=== PATIENT | female | born 1945 | race Caucasian/White ===

== ENCOUNTER → 2020-10-05 | Outpatient (CLI) | payer MEDICARE ==
--- NOTE | 2020-10-06 11:01 | MM ---
Reason for exam: screening (asymptomatic). Last mammogram was performed 5 years and 4 months ago. History: Patient is postmenopausal. Reductions of both breasts, 1996. Benign excisional biopsy of both breasts. Took hormonal contraceptives for 5 years. Took estrogen for 7 years. Physical Findings: A clinical breast exam by your physician is recommended on an annual basis and results should be correlated with mammographic findings. MG Screening Mammo w CAD Bilateral CC and MLO view(s) were taken. Prior study comparison: June 16, 2015, bilateral MG screening mammo w CAD. December 09, 2013, bilateral MG screening mammo w CAD. There are scattered fibroglandular densities. Finding: There are typically benign round calcifications. There is no discrete abnormality. ASSESSMENT: Benign, BI-RAD 2 RECOMMENDATION: Routine screening mammogram of both breasts in 1 year.
== END | disposition home or self-care (01) ==
LOC: RADMAMWWP 15:55
PROVIDERS: ATTEND Family Medicine
DX: Z12.31 Encounter for screening mammogram for malignant neoplasm of breast (principal); Z78.0 Asymptomatic menopausal state
CPT/HCPCS: 77067

== ENCOUNTER → 2021-09-01 | Outpatient (CLI) | payer MEDICARE ==
--- NOTE | 2021-09-01 15:24 | US ---
EXAMINATION TYPE: US venous doppler duplex LE RT DATE OF EXAM: 09/01/2021 3:11 PM COMPARISON: CLINICAL HISTORY: M79.661 RT lower leg pain. Patient states leg aches. No redness or swelling. SIDE PERFORMED: Right TECHNIQUE: The lower extremity deep venous system is examined utilizing real time linear array sonog beti with graded compression, doppler sonography and color-flow sonography. VESSELS IMAGED: Common Femoral Vein Deep Femoral Vein Greater Saphenous Vein * Femoral Vein Popliteal Vein Small Saphenous Vein * Proximal Calf Veins (* superficial vessels) Right Leg: Negative for DVT IMPRESSION: 1. Right lower extremity ultrasound negative for deep venous thrombosis
== END | disposition home or self-care (01) ==
LOC: RADUSWWP 14:52
PROVIDERS: ATTEND Family Medicine
DX: M79.661 Pain in right lower leg (principal)

== ENCOUNTER 2022-02-03 13:41 | Inpatient (IN) | payer MEDICARE ==
[2022-02-03] MEDS ORDERED: hydrALAZINE HCL 20 MG/ML 1 ML VIAL IVP STA (14:27)
--- NOTE | 2022-02-03 14:44 | ED ---
General Adult HPI - General Chief complaint: Dizziness Stated complaint: lightheaded, hypertension Time Seen by Provider: 02/03/22 14:25 Source: patient, RN notes reviewed, old records reviewed Mode of arrival: ambulatory Limitations: no limitations - History of Present Illness Initial comments: This is a 76-year-old female presents emergency Department complaining that she woke up this morning he was dizzy and had a headache on the frontal and right side of her head. Patient states she has had this before and he usually goes away. Patient states she difficulty pressure was elevated so she decided to come to the emergency department. Patient states she is not being treated for high blood pressure currently but she has had high blood pressure in the past but her blood pressure was normal so she was stopped on her blood pressure medication. Patient denies any numbness or weakness. Patient denies any passing out. Patient denies any chest pain palpitations difficulty breathing shortness of breath per patient denies any abdominal pain patient denies any back pain. Patient denies any recent fever chills or cough per patient denies any nausea vomiting diarrhea. - Related Data Home Medications Medication Instructions Recorded Confirmed Acetaminophen Tab [Tylenol Tab] 500 mg PO Q6H PRN 02/03/22 02/03/22 Calcium Carbonate [Calcium] 600 mg PO DAILY 02/03/22 02/03/22 Cholecalciferol [Vitamin D3 (25 25 mcg PO DAILY 02/03/22 02/03/22 Mcg = 1000 Iu)] L.acidoph,Paracasei, B.lactis 1 cap PO DAILY 02/03/22 02/03/22 [Probiotic] Allergies Allergy/AdvReac Type Severity Reaction Status Date / Time Penicillins Allergy Unknown Verified 02/03/22 16:17 Childhood prochlorperazine edisylate Allergy "lock jaw" Verified 02/03/22 16:17 [From Compazine] prochlorperazine maleate Allergy "lock jaw" Verified 02/03/22 16:17 [From Compazine] Review of Systems ROS Statement: Those systems with pertinent positive or pertinent negative responses have been documented in the HPI. ROS Other: All systems not noted in ROS Statement are negative. Past Medical History Past Medical History: GERD/Reflux, Hypertension Additional Past Medical History / Comment(s): POSITIVE HEMMOCULT, heart murmur. is not prescribed hypertension meds History of Any Multi-Drug Resistant Organisms: None Reported Past Surgical History: Back Surgery, Breast Surgery, Cholecystectomy, Hysterectomy, Orthopedic Surgery Additional Past Surgical History / Comment(s): BREAST REDUCTION, LEFT ANKLE SX Past Anesthesia/Blood Transfusion Reactions: Postoperative Nausea & Vomiting (PONV) Past Psychological History: No Psychological Hx Reported Past Alcohol Use History: None Reported Past Drug Use History: None Reported General Exam - General Exam Comments Initial Comments: GENERAL: Patient is well-developed and well-nourished. Patient is nontoxic and well- hydrated and is in mild distress. ENT: Neck is soft and supple. No significant lymphadenopathy is noted. Oropharynx is clear. Moist mucous membranes. Neck has full range of motion without eliciting any pain. EYES: The sclera were anicteric and conjunctiva were pink and moist. Extraocular movements were intact and pupils were equal round and reactive to light. Eyelids were unremarkable. PULMONARY: Unlabored respirations. Good breath sounds bilaterally. No audible rales rhonchi or wheezing was noted. CARDIOVASCULAR: There is a regular rate and rhythm without any murmurs gallops or rubs. ABDOMEN: Soft and nontender with normal bowel sounds. SKIN: Skin is clear with no lesions or rashes and otherwise unremarkable. NEUROLOGIC: Patient is alert and oriented x3. Cranial nerves II through XII are grossly intact. Motor and sensory are also intact. Normal speech, volume and content. Symmetrical smile. MUSCULOSKELETAL: Normal extremities with adequate strength and full range of motion. LYMPHATICS: No significant lymphadenopathy is noted PSYCHIATRIC: Normal psychiatric evaluation. Limitations: no limitations Course Vital Signs 02/03/22 02/03/22 02/03/22 14:20 15:11 15:44 Temperature 98.2 F Pulse Rate 87 71 116 H Respiratory 22 18 18 Rate Blood Pressure 229/119 256/114 216/85 O2 Sat by Pulse 99 99 98 Oximetry Medical Decision Making - Medical Decision Making EKG shows sinus rhythm at 80 bpm [place] interval 170 QRS 91 QT interval 374 QTC is 410 per patient's EKG shows no ST segment elevation or depression. He was having some chest pain after she initially came so repeat EKG was done and showed sinus tachycardia 114 bpm [place] interval 280 QRSs 89 QT interval 320 QTC is 386. Patient's EKG shows no ST segment elevation. Patient was given 20 of hydralazine about her blood pressure down to of 174/83 CT of the brain shows no acute abnormality. Chest x-ray shows no acute abnormality. - Lab Data Result diagrams: 02/03/22 14:59 02/03/22 14:59 Lab Results 02/03/22 02/03/22 02/03/22 Range/Units 14:59 14:59 14:59 WBC 8.4 (3.8-10.6) k/uL RBC 5.66 H (3.80-5.40) m/uL Hgb 16.3 H (11.4-16.0) gm/dL Hct 50.4 H (34.0-46.0) % MCV 89.0 (80.0-100.0) fL MCH 28.8 (25.0-35.0) pg MCHC 32.3 (31.0-37.0) g/dL RDW 13.4 (11.5-15.5) % Plt Count 284 (150-450) k/uL MPV 7.4 Neutrophils % 78 % Lymphocytes % 15 % Monocytes % 5 % Eosinophils % 1 % Basophils % 1 % Neutrophils # 6.5 (1.3-7.7) k/uL Lymphocytes # 1.3 (1.0-4.8) k/uL Monocytes # 0.4 (0-1.0) k/uL Eosinophils # 0.1 (0-0.7) k/uL Basophils # 0.1 (0-0.2) k/uL PT 10.4 (9.0-12.0) sec INR 0.9 (<1.2) APTT 27.0 (22.0-30.0) sec Sodium 139 (137-145) mmol/L Potassium 4.7 (3.5-5.1) mmol/L Chloride 104 (98-107) mmol/L Carbon Dioxide 23 (22-30) mmol/L Anion Gap 12 mmol/L BUN 12 (7-17) mg/dL Creatinine 0.72 (0.52-1.04) mg/dL Est GFR (CKD-EPI)AfAm >90 (>60 ml/min/1.73 sqM) Est GFR (CKD-EPI)NonAf 83 (>60 ml/min/1.73 sqM) Glucose 109 H (74-99) mg/dL Calcium 10.2 (8.4-10.2) mg/dL Magnesium 1.9 (1.6-2.3) mg/dL Total Bilirubin 0.8 (0.2-1.3) mg/dL AST 37 H (14-36) U/L ALT 17 (4-34) U/L Alkaline Phosphatase 108 (38-126) U/L Troponin I (0.000-0.034) ng/mL Total Protein 7.8 (6.3-8.2) g/dL Albumin 4.6 (3.5-5.0) g/dL TSH 2.000 (0.465-4.680) mIU/L Urine Color Urine Appearance (Clear) Urine pH (5.0-8.0) Ur Specific [place] (1.001-1.035) Urine Protein (Negative) Urine Glucose (UA) (Negative) Urine Ketones (Negative) Urine Blood (Negative) Urine Nitrite (Negative) Urine Bilirubin (Negative) Urine Urobilinogen (<2.0) mg/dL Ur Leukocyte Esterase (Negative) Urine Opiates Screen (NotDetected) Ur Oxycodone Screen (NotDetected) Urine Methadone Screen (NotDetected) Ur Propoxyphene Screen (NotDetected) Ur Barbiturates Screen (NotDetected) U Tricyclic Antidepress (NotDetected) Ur Phencyclidine Scrn (NotDetected) Ur Amphetamines Screen (NotDetected) U Methamphetamines Scrn (NotDetected) U Benzodiazepines Scrn (NotDetected) Urine Cocaine Screen (NotDetected) U Marijuana (THC) Screen (NotDetected) 02/03/22 02/03/22 Range/Units 14:59 14:59 WBC (3.8-10.6) k/uL RBC (3.80-5.40) m/uL Hgb (11.4-16.0) gm/dL Hct (34.0-46.0) % MCV (80.0-100.0) fL MCH (25.0-35.0) pg MCHC (31.0-37.0) g/dL RDW (11.5-15.5) % Plt Count (150-450) k/uL MPV Neutrophils % % Lymphocytes % % Monocytes % % Eosinophils % % Basophils % % Neutrophils # (1.3-7.7) k/uL Lymphocytes # (1.0-4.8) k/uL Monocytes # (0-1.0) k/uL Eosinophils # (0-0.7) k/uL Basophils # (0-0.2) k/uL PT (9.0-12.0) sec INR (<1.2) APTT (22.0-30.0) sec Sodium (137-145) mmol/L Potassium (3.5-5.1) mmol/L Chloride (98-107) mmol/L Carbon Dioxide (22-30) mmol/L Anion Gap mmol/L BUN (7-17) mg/dL Creatinine (0.52-1.04) mg/dL Est GFR (CKD-EPI)AfAm (>60 ml/min/1.73 sqM) Est GFR (CKD-EPI)NonAf (>60 ml/min/1.73 sqM) Glucose (74-99) mg/dL Calcium (8.4-10.2) mg/dL Magnesium (1.6-2.3) mg/dL Total Bilirubin (0.2-1.3) mg/dL AST (14-36) U/L ALT (4-34) U/L Alkaline Phosphatase (38-126) U/L Troponin I <0.012 (0.000-0.034) ng/mL Total Protein (6.3-8.2) g/dL Albumin (3.5-5.0) g/dL TSH (0.465-4.680) mIU/L Urine Color Colorless Urine Appearance Clear (Clear) Urine pH 6.0 (5.0-8.0) Ur Specific [place] 1.001 (1.001-1.035) Urine Protein Negative (Negative) Urine Glucose (UA) Negative (Negative) Urine Ketones Negative (Negative) Urine Blood Negative (Negative) Urine Nitrite Negative (Negative) Urine Bilirubin Negative (Negative) Urine Urobilinogen <2.0 (<2.0) mg/dL Ur Leukocyte Esterase Negative (Negative) Urine Opiates Screen Not Detected (NotDetected) Ur Oxycodone Screen Not Detected (NotDetected) Urine Methadone Screen Not Detected (NotDetected) Ur Propoxyphene Screen Not Detected (NotDetected) Ur Barbiturates Screen Not Detected (NotDetected) U Tricyclic Antidepress Not Detected (NotDetected) Ur Phencyclidine Scrn Not Detected (NotDetected) Ur Amphetamines Screen Not Detected (NotDetected) U Methamphetamines Scrn Not Detected (NotDetected) U Benzodiazepines Scrn Not Detected (NotDetected) Urine Cocaine Screen Not Detected (NotDetected) U Marijuana (THC) Screen Not Detected (NotDetected) Critical Care Time Critical Care Time: Yes Total Critical Care Time: 35 Disposition Clinical Impression: Hypertensive urgency, Chest pain Disposition: [facility] Referrals: Isidoro Duffy DO [Primary Care Provider] - 1-2 days Time of Disposition: 17:00
[2022-02-03 15:09] LABS: Basophils # (A) 0.1 k/uL (0-0.2); Basophils % (A) 1 %; Eosinophils # (A) 0.1 k/uL (0-0.7); Eosinophils % (A) 1 %; HCT 50.4 % (34.0-46.0); HGB 16.3 gm/dL (11.4-16.0); Lymphocytes # (A) 1.3 k/uL (1.0-4.8); Lymphocytes % (A) 15 %; MCH 28.8 pg (25.0-35.0); MCHC 32.3 g/dL (31.0-37.0); Mean Platelet Volume 7.4; Monocytes # (A) 0.4 k/uL (0-1.0); Monocytes % (A) 5 %; Neutrophils # (A) 6.5 k/uL (1.3-7.7); Neutrophils % (A) 78 %; Platelet Count 284 k/uL (150-450); RBC 5.66 m/uL (3.80-5.40); RDW 13.4 % (11.5-15.5); WBC 8.4 k/uL (3.8-10.6)
[2022-02-03 15:14] LABS: Appearance,Urine Clear (Clear); Bilirubin,Urine Negative (Negative); Blood,Urine Negative (Negative); Color,Urine Colorless; Glucose,Urine (UA) Negative (Negative); Ketones,Urine Negative (Negative); Leukocyte Esterase,Urine Negative (Negative); Nitrite,Urine Negative (Negative); Protein,Urine Negative (Negative); Specific Gravity,Urine 1.001 (1.001-1.035); Urobilinogen,Urine <2.0 mg/dL (<2.0)
[2022-02-03 15:17] LABS: INR 0.9 (<1.2); Prothrombin Time 10.4 sec (9.0-12.0)
[2022-02-03 15:22] LABS: ALT 17 U/L (4-34); AST 37 U/L (14-36); African American GFR (CKD) >90 (>60 ml/min/1.73 sqM); Albumin 4.6 g/dL (3.5-5.0); Alkaline Phosphatase 108 U/L (38-126); Anion Gap 12 mmol/L; Blood Urea Nitrogen 12 mg/dL (7-17); Calcium 10.2 mg/dL (8.4-10.2); Carbon Dioxide 23 mmol/L (22-30); Chloride 104 mmol/L (98-107); Glucose 109 mg/dL (74-99); Magnesium 1.9 mg/dL (1.6-2.3); Non-African American GFR(CKD) 83 (>60 ml/min/1.73 sqM); Sodium 139 mmol/L (137-145); Total Bilirubin 0.8 mg/dL (0.2-1.3); Total Protein 7.8 g/dL (6.3-8.2)
[2022-02-03 15:24] LABS: Potassium 4.7 mmol/L (3.5-5.1)
[2022-02-03 15:36] LABS: Amphetamine Screen,Urine Not Detected (NotDetected); Barbiturate Screen,Urine Not Detected (NotDetected); Benzodiazepines Screen,Urine Not Detected (NotDetected); Cocaine Screen,Urine Not Detected (NotDetected); Methadone Screen, Urine Not Detected (NotDetected); Opiate Screen,Urine Not Detected (NotDetected); Oxycodone Screen, Urine Not Detected (NotDetected); Phencyclidine Screen,Urine Not Detected (NotDetected); Tricyclic Antidepressant,Urine Not Detected (NotDetected); Urn Cannabinoid Scrn Not Detected (NotDetected)
[2022-02-03] MEDS ORDERED: LORazepam 2 MG/ML INJ IV STA (15:37)
--- NOTE | 2022-02-03 15:40 | CT ---
EXAMINATION TYPE: CT brain wo con DATE OF EXAM: 02/03/2022 HISTORY: headache and dizziness CT DLP: 1090.4 mGycm. Automated Exposure Control for Dose Reduction was Utilized. TECHNIQUE: CT scan of the head is performed without contrast. COMPARISON: None. FINDINGS: There is no acute intracranial hemorrhage or midline shift identified. There is mild diff use ventricular and sulcal prominence consistent with diffuse age-related cerebral atrophy. There is mild to minimal low-attenuation in the periventricular white matter consistent with chronic small ve ssel ischemic change. The globes are intact and the visualized sinuses are clear. IMPRESSION: No acute intracranial hemorrhage or midline shift. There is mild diffuse cerebral atrop hy and mild to minimal chronic small vessel ischemic change noted.
[2022-02-03] MEDS ORDERED: NITROGLYCERIN SL TABS 0.4 MG TAB SUBLINGUAL PRN (17:06)
--- NOTE | 2022-02-03 17:06 | XR ---
EXAMINATION TYPE: XR chest 2V DATE OF EXAM: 02/03/2022 COMPARISON: NONE HISTORY: Chest pain TECHNIQUE: Frontal and lateral views of the chest are obtained. FINDINGS: There is no focal air space opacity, pleural effusion, or pneumothorax seen. The cardiac silhouette size is within normal limits. The osseous structures are intact. IMPRESSION: No acute cardiopulmonary process.
[2022-02-03] MEDS: NITROGLYCERIN OINT 1 INCH/GM PACKET TOPICAL SCH ×2 (18:11→23:29)
[2022-02-03] MEDS ORDERED: HEPARIN SODIUM 1,000 UN/ML (10ML VL) IV ONE (19:47)
[2022-02-03] MEDS ORDERED: HEPARIN SODIUM 1,000 UN/ML (10ML VL) IV PRN (19:47)
[2022-02-03] MEDS: HEPARIN SOD,PORK IN 0.45% NACL 25,000 UNIT in 0.45% NACL 1 250ML.BAG IV SCH (20:05)
[2022-02-03] MEDS: ACETAMINOPHEN TAB 500 MG TAB PO PRN (20:05)
[2022-02-03] MEDS: METOPROLOL TARTRATE 50 MG TAB PO SCH (20:05)
[2022-02-03 20:50] LABS: Basophils % (A) 0 %; Eosinophils # (A) 0.1 k/uL (0-0.7); Eosinophils % (A) 1 %; HCT 47.6 % (34.0-46.0); HGB 15.5 gm/dL (11.4-16.0); Lymphocytes # (A) 1.4 k/uL (1.0-4.8); Lymphocytes % (A) 13 %; MCH 29.3 pg (25.0-35.0); MCHC 32.6 g/dL (31.0-37.0); MCV 89.8 fL (80.0-100.0); Monocytes # (A) 0.4 k/uL (0-1.0); Monocytes % (A) 4 %; Neutrophils # (A) 8.6 k/uL (1.3-7.7); Neutrophils % (A) 81 %; Platelet Count 303 k/uL (150-450); RDW 13.8 % (11.5-15.5); WBC 10.5 k/uL (3.8-10.6)
[2022-02-03 20:59] LABS: Partial Thromboplastin Time 33.6 sec (22.0-30.0); Prothrombin Time 11.2 sec (9.0-12.0)
[2022-02-03] MEDS ORDERED: METOPROLOL TARTRATE 25 MG TAB PO SCH (21:00)
[2022-02-04 02:49] LABS: Prothrombin Time 11.3 sec (9.0-12.0)
[2022-02-04 03:03] LABS: Partial Thromboplastin Time 121.2 sec (22.0-30.0)
[2022-02-04] MEDS: NITROGLYCERIN OINT 1 INCH/GM PACKET TOPICAL SCH (05:54)
[2022-02-04] MEDS: ACETAMINOPHEN TAB 500 MG TAB PO PRN (07:59)
[2022-02-04] MEDS: METOPROLOL TARTRATE 50 MG TAB PO SCH (08:00)
[2022-02-04] MEDS: lisinopriL 5 MG TAB PO SCH (08:36)
[2022-02-04] MEDS ORDERED: ASPIRIN 325 MG TAB PO SCH (09:00)
[2022-02-04] MEDS: ASPIRIN 81 MG PO SCH (09:17)
[2022-02-04 09:57] LABS: Basophils # (A) 0.1 k/uL (0-0.2); Basophils % (A) 1 %; Eosinophils # (A) 0.2 k/uL (0-0.7); Eosinophils % (A) 3 %; HCT 47.9 % (34.0-46.0); Lymphocytes # (A) 1.6 k/uL (1.0-4.8); Lymphocytes % (A) 22 %; MCH 28.3 pg (25.0-35.0); MCHC 31.4 g/dL (31.0-37.0); MCV 90.2 fL (80.0-100.0); Mean Platelet Volume 7.7; Monocytes # (A) 0.3 k/uL (0-1.0); Monocytes % (A) 4 %; Neutrophils # (A) 4.9 k/uL (1.3-7.7); Neutrophils % (A) 68 %; Platelet Count 282 k/uL (150-450); RBC 5.32 m/uL (3.80-5.40); RDW 13.6 % (11.5-15.5); WBC 7.1 k/uL (3.8-10.6)
[2022-02-04 10:00] LABS: African American GFR (CKD) >90 (>60 ml/min/1.73 sqM); Anion Gap 8 mmol/L; Blood Urea Nitrogen 12 mg/dL (7-17); Calcium 9.3 mg/dL (8.4-10.2); Carbon Dioxide 23 mmol/L (22-30); Chloride 108 mmol/L (98-107); Glucose 100 mg/dL (74-99); Non-African American GFR(CKD) 81 (>60 ml/min/1.73 sqM); Potassium 4.4 mmol/L (3.5-5.1); Sodium 139 mmol/L (137-145)
--- NOTE | 2022-02-04 10:55 | US ---
EXAMINATION TYPE: US carotid duplex BILAT DATE OF EXAM: 02/04/2022 COMPARISON: NONE Exam done portable CLINICAL HISTORY: rule out carotid stenosis. TECHNIQUE: Carotid duplex ultrasound examination. Indirect Doppler criteria was utilized. FINDINGS: EXAM MEASUREMENTS: RIGHT: Peak Systolic Velocity (PSV) cm/sec ----- Right CCA: 85.8 ----- Right ICA: 212.0 ----- Right ECA: 193.0 ICA/CCA ratio: 2.5 RIGHT: End Diastole cm/sec ----- Right CCA: 14.9 ----- Right ICA: 46.6 ----- Right ECA: 0.0 LEFT: Peak Systolic Velocity (PSV) cm/sec ----- Left CCA: 95.2 ----- Left ICA: 154.0 ----- Left ECA: 115.0 ICA/CCA ratio: 1.6 LEFT: End Diastole cm/sec ----- Left CCA: 19.8 ----- Left ICA: 44.1 ----- Left ECA: 0.0 VERTEBRALS (direction of flow): Right Vertebral: Antegrade Left Vertebral: Antegrade Rhythm: Normal Right ICA/CCA ratio 2.5 IMPRESSION: Elevated velocity within the right internal carotid artery compatible with moderate stenosis between 50 and 69%. This is likely at the higher end. Correlate with clinical symptoms. Criteria for Assigning % of Stenosis / Diameter reduction (Estimation based on the indirect measurements of the internal carotid artery velocities (ICA PSV). 1. Normal (no stenosis)=ICA PSV < 125 cm/s: ratio < 2.0: ICA EDV<40 cm/s. 2. Less than 50% stenosis=ICA PSV < 125 cm/s: ratio < 2.0: ICA EDV<40 cm/s. 3. 50 to 69% stenosis=ICA PSV of 125 to 230 cm/s: ration 2.0 ? 4.0: ICA EDV 40-100 cm/s. 4. Greater than 70% stenosis to near occlusion= ICA PSV > 230 cm/s: ratio > 4.0: ICA EDV > 100 cm/s. 5. Near occlusion= ICA PSV velocities may be low or undetectable: variable ratio and ICA EDV. 6. Total occlusion=unable to detect flow.
[2022-02-04] MEDS: ATORVASTATIN 20 MG TAB PO SCH (10:58)
--- NOTE | 2022-02-04 11:14 | P.CRDCN ---
History of Present Illness History of present illness: HISTORY OF PRESENTING ILLNESS This is a pleasant 76-year-old female past medical history significant for hypertension (on medication in the past, improved with change in healthy lifestyle and weight loss), GERD and dizziness. 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 We have been asked to see in consultation for NSTEMI. Patient presented to the ER with complaints of dizziness. She states that she has had dizziness for over a year, was seen by an ENT and was diagnosed with inner ear issue. She states she majority of the time gets dizzy with movement of the head and leaning backward. She states yesterday, she was getting her hair done, from leaning back in the chair to standing she acute onset dizziness, she states she needed assistance going to the car. It improved. When she got home, she felt increased dizziness again, she checked her BP and it was elevated with SBP 220s. She called her PCP and was recommended patient go to the ER. She denies any chest pain, shortness of breath, palpitations, syncope, or lightheadedness. She did have some nausea yesterday with diaphoresis. She denies any history of [place], Stroke, Diabetes, or dyslipidemia. She denies any tobacco use. She does have a family history of heart disease with her father. DIAGNOSTICS * EKG reveals sinus rhythm, heart rate 75, nonspecific ST abnormalities. No significant changes to suggest acute ischemia. * Telemetry tracings indicate sinus mechanism HR 50s. * Chest xray no acute cardiopulmonary process * Laboratory reviewed, initial troponin negative- 0.05, 0.12, 0.05 trend, sodium 139, potassium 4.4, BUN 12, syncope 2.7, hemoglobin 15.Urine tox negative. UA negative * Current home cardiac medications include none REVIEW OF SYSTEMS At the time of my exam: CONSTITUTIONAL: Denies fever or chills. CARDIOVASCULAR: Denies chest pain, shortness of breath, orthopnea, PND or palpitations. RESPIRATORY: Denies cough. GASTROINTESTINAL: Denies abdominal pain, diarrhea, constipation, nausea or vomiting. MUSCULOSKELETAL: Denies myalgias. NEUROLOGIC: Denies numbness, tingling, headacbe or weakness. +dizziness ENDOCRINE: Denies fatigue, weight change, polydipsia or polyurina. GENITOURINARY: Denies burning, hematuria or urgency with micturation. HEMATOLOGIC: Denies history of anemia or bleeding. PHYSICAL EXAMINATION Blood pressure 150/72, heart 61, afebrile, saturation 97% on room air CONSTITUTIONAL: No apparent distress. HEENT: Head is normocephalic. Pupils are equal, round. Sclerae anicteric. Mucous membranes of the mouth are moist. No JVD. No carotid bruit. CHEST EXAMINATION: Lungs are clear to auscultation. No chest wall tenderness is noted on palpation or with deep breathing. HEART EXAMINATION: Regular rate and rhythm. S1, S2 heard. No murmurs, gallops or rub. ABDOMEN: Soft, nontender. Positive bowel sounds. EXTREMITIES: 2+ peripheral pulses, no lower extremity edema and no calf tendern ess. NEUROLOGIC EXAMINATION: Patient is awake, alert and oriented x3. ASSESSMENT Hypertensive emergency Dizziness, with history of evaluation with ENT and inner ear evaluation Elevated troponin, likely secondary to above, rule out ischemia, patient without any symptoms of ischemia on Exam or on EKG History of hypertension GERD PLAN IV heparin Trend troponin, repeat 0.05 Obtain 2D echocardiogram and doppler study to assess cardiac structure and function. Lisinopril 5mg daily Aspirin, statin, beta isaiah Will continue to monitor, in light of no chest pain and ischemic EKG changes will hold off on cardiac catheterization pending work up Further recommendations based on clinical course Nurse practitioner note has been reviewed by physician. Signing provider agrees with the documented findings, assessment, and plan of care. Past Medical History Past Medical History: GERD/Reflux, Hypertension Additional Past Medical History / Comment(s): POSITIVE HEMMOCULT, heart murmur. is not prescribed hypertension meds History of Any Multi-Drug Resistant Organisms: None Reported Past Surgical History: Back Surgery, Breast Surgery, Cholecystectomy, Hysterectomy, Orthopedic Surgery Additional Past Surgical History / Comment(s): BREAST REDUCTION, LEFT ANKLE SX Past Anesthesia/Blood Transfusion Reactions: Postoperative Nausea & Vomiting (PONV) Past Psychological History: No Psychological Hx Reported Smoking Status: Never smoker Past Alcohol Use History: None Reported Past Drug Use History: None Reported - Past Family History Father Family Medical History: COPD, Diabetes Mellitus Additional Family Medical History / Comment(s): parkinsons Mother Additional Family Medical History / Comment(s): alzheimers Medications and Allergies Home Medications Medication Instructions Recorded Confirmed Type Acetaminophen Tab [Tylenol Tab] 500 mg PO Q6H PRN 02/03/22 02/03/22 History Calcium Carbonate [Calcium] 600 mg PO DAILY 02/03/22 02/03/22 History Cholecalciferol [Vitamin D3 (25 25 mcg PO DAILY 02/03/22 02/03/22 History Mcg = 1000 Iu)] L.acidoph,Paracasei, B.lactis 1 cap PO DAILY 02/03/22 02/03/22 History [Probiotic] Allergies Allergy/AdvReac Type Severity Reaction Status Date / Time Penicillins Allergy Unknown Verified 02/03/22 16:17 Childhood prochlorperazine edisylate Allergy "lock jaw" Verified 02/03/22 16:17 [From Compazine] prochlorperazine maleate Allergy "lock jaw" Verified 02/03/22 16:17 [From Compazine] Physical Exam Vitals: Vital Signs Temp Pulse Pulse Resp BP BP Pulse Ox 02/04/22 04:06 97.9 F 58 L 16 128/60 97 02/03/22 23:34 98.2 F 57 L 14 102/59 93 L 02/03/22 19:15 98.1 F 92 16 150/78 02/03/22 18:03 101 H 18 176/81 98 02/03/22 17:00 100 18 169/84 96 02/03/22 16:00 98 18 173/84 98 02/03/22 15:44 116 H 18 216/85 98 02/03/22 15:11 71 18 256/114 99 02/03/22 14:20 98.2 F 87 22 229/119 99 Intake and Output 02/03/22 02/04/22 02/04/22 22:59 06:59 14:59 Intake Total 70.154 Balance 70.154 Intake: Intake, IV Titration 70.154 Amount Heparin Sod,Pork in 0.45% 70.154 NaCl 25,000 unit In 0.45 % NaCl 1 250ml.bag @ 12 UNITS/KG/HR 10.07 mls/hr IV .Q24H [facility] Rx#: [id number] Other: Weight 83.915 kg Results 02/04/22 09:22 02/04/22 09:22 Cardiac Enzymes 02/03/22 02/03/22 02/03/22 Range/Units 14:59 14:59 17:42 AST 37 H (14-36) U/L Troponin I <0.012 0.054 H* (0.000-0.034) ng/mL 02/03/22 Range/Units 20:09 AST (14-36) U/L Troponin I 0.127 H* (0.000-0.034) ng/mL Coagulation 02/03/22 02/03/22 02/04/22 Range/Units 14:59 20:09 01:32 PT 10.4 11.2 11.3 (9.0-12.0) sec APTT 27.0 33.6 H 121.2 H* (22.0-30.0) sec CBC 02/03/22 02/03/22 Range/Units 14:59 20:09 WBC 8.4 10.5 (3.8-10.6) k/uL RBC 5.66 H 5.30 (3.80-5.40) m/uL Hgb 16.3 H 15.5 (11.4-16.0) gm/dL Hct 50.4 H 47.6 H (34.0-46.0) % Plt Count 284 303 (150-450) k/uL Comprehensive Metabolic Panel 02/03/22 Range/Units 14:59 Sodium 139 (137-145) mmol/L Potassium 4.7 (3.5-5.1) mmol/L Chloride 104 (98-107) mmol/L Carbon Dioxide 23 (22-30) mmol/L BUN 12 (7-17) mg/dL Creatinine 0.72 (0.52-1.04) mg/dL Glucose 109 H (74-99) mg/dL Calcium 10.2 (8.4-10.2) mg/dL AST 37 H (14-36) U/L ALT 17 (4-34) U/L Alkaline Phosphatase 108 (38-126) U/L Total Protein 7.8 (6.3-8.2) g/dL Albumin 4.6 (3.5-5.0) g/dL Current Medications Generic Name Dose Route Start Last Admin Trade Name Freq PRN Reason Stop Dose Admin Acetaminophen 500 mg 02/03/22 19:43 02/03/22 20:05 Acetaminophen Tab 500 Mg Tab PO 500 mg Q6HR PRN Administration Fever and/ or Mild Pain Aspirin 325 mg 02/04/22 09:00 Aspirin 325 Mg Tab PO DAILY [facility] Heparin Sodium (Porcine) 0 unit 02/03/22 19:47 Heparin Sodium 1,000 Un/Ml (10ml Vl) IV PER PROTOCOL PRN Low PTT Protocol Heparin Sodium/Sodium Chloride 250 mls @ 10.07 mls/hr 02/03/22 20:00 02/04/22 04:05 25,000 unit/ Sodium Chloride IV 9 units/kg/hr .Q24H [facility] 7.552 mls/hr Titration Protocol 12 UNITS/KG/HR Metoprolol Tartrate 50 mg 02/03/22 21:00 02/03/22 20:05 Metoprolol Tartrate 50 Mg Tab PO 50 mg BID [facility] Administration Nitroglycerin 0.4 mg 02/03/22 17:06 Nitroglycerin Sl Tabs 0.4 Mg Tab SUBLINGUAL Q5M PRN Chest Pain Nitroglycerin 1 inch 02/03/22 18:00 02/04/22 05:54 Nitroglycerin Oint 1 Inch/Gm Packet TOPICAL Not Given Q6HR [facility] Intake and Output 02/03/22 02/04/22 02/04/22 22:59 06:59 14:59 Intake Total 70.154 Balance 70.154 Intake: Intake, IV Titration 70.154 Amount Heparin Sod,Pork in 0.45% 70.154 NaCl 25,000 unit In 0.45 % NaCl 1 250ml.bag @ 12 UNITS/KG/HR 10.07 mls/hr IV .Q24H [facility] Rx#: [id number] Other: Weight 83.915 kg 02/03/22 20:09 02/03/22 14:59
--- NOTE | 2022-02-04 12:00 | CA ---
Transthoracic Echo Report Name: Kinga Pfeiffer Age: 76 Gender: F : 1945 Exam Date: 02/04/2022 09:40 Exam Location: [facility] Ht (in): 62 Wt (lb): 185 Ordering Physician: Sharlene Lara Attending/Referring Phys: Display Decorator Erica Matos RDCS Procedure CPT: Indications: HTN, NSTEMI Cardiac Hx: Technical Quality: Good Contrast 1: Total Dose (mL): Contrast 2: Total Dose (mL): MEASUREMENTS (Male / Female) Normal Values 2D ECHO LV Diastolic Diameter PLAX 3.5 cm 4.2 - 5.9 / 3.9 - 5.3 cm LV Systolic Diameter PLAX 2.4 cm IVS Diastolic Thickness 1.2 cm 0.6 - 1.0 / 0.6 - 0.9 cm LVPW Diastolic Thickness 1.0 cm 0.6 - 1.0 / 0.6 - 0.9 cm LV Relative Wall Thickness 0.6 RV Internal Dim ED PLAX 3.3 cm LVOT Diameter 1.9 cm LA Systolic Diameter LX 3.1 cm 3.0 - 4.0 / 2.7 - 3.8 cm LA Volume 34.7 cm??? 18 - 58 / 22 - 52 cm??? M-MODE Aortic Root Diameter MM 2.9 cm MV E Point Septal Separation 0.3 cm AV Cusp Separation MM 1.5 cm DOPPLER AV Peak Velocity 191.2 cm/s AV Peak Gradient 14.6 mmHg AV Mean Velocity 125.2 cm/s AV Mean Gradient 7.0 mmHg AV Velocity Time Integral 49.1 cm AI Peak Velocity 381.7 cm/s AI Peak Gradient 58.3 mmHg AI Pressure Half Time 543.2 ms LVOT Peak Velocity 126.6 cm/s LVOT Peak Gradient 6.4 mmHg AV Area Cont Eq pk 1.8 cm??? MV Area PHT 4.2 cm??? Mitral E Point Velocity 117.6 cm/s Mitral A Point Velocity 85.8 cm/s Mitral E to A Ratio 1.4 MV Deceleration Time 180.9 ms MV E' Velocity 8.0 cm/s Mitral E to MV E' Ratio 14.8 TR Peak Velocity 254.8 cm/s TR Peak Gradient 26.0 mmHg Right Ventricular Systolic Press 31.0 mmHg FINDINGS Left Ventricle Left ventricular ejection fraction is estimated at 55-60 %. Left ventricular cavity size normal. Borderline left ventricular hypertrophy. Right Ventricle Mild right ventricular dilatation. Right ventricular systolic pressure within normal limits. Right Atrium Normal right atrial size. Left Atrium Normal left atrial size. No evidence for an atrial septal defect. Mitral Valve Mitral valve thickened. Mitral annular calcification. Trace to mild mitral regurgitation. Aortic Valve Focal thickening of the aortic valve cusps. Mild aortic stenosis with a peak gradient of 15 mmHg and a mean gradient of 7 mmHg. Mild aortic regurgitation. Tricuspid Valve Mild tricuspid regurgitation. Pulmonic Valve Structurally normal pulmonic valve. Pericardium Normal pericardium. No pericardial effusion. Aorta Normal size aortic root and proximal ascending aorta. CONCLUSIONS Preserved LV size and systolic function with minimal aortic stenosis Previewed by: Dr. Kal Farr MD (Electronically Signed) Final Date: 04 February 2022 11:59
--- NOTE | 2022-02-04 13:18 | P.HPIM ---
History of Present Illness H&P Date: 02/04/22 Chief Complaint: Dizzy This is a very pleasant 76-year-old patient follows with Dr. Duffy. Patient presented with 2 months episodes of dizzy episodes. She feels her head is in a fall. If she does something quickly she gets dizzy. Yesterday she was told hairdressers the head was thrown back she became more dizzy. And was losing her balance while walking off that. No chest pain or shortness of breath. She went home. Took a blood pressure close to 220/85. Patient then came down to the ER. Initial blood pressure in the ER 229/119.. Patient had an episode of chest pain lasting about 10 minutes. Differin as a pressure. Patient's troponin became positive. Was placed on IV heparin. Started on Zestril and Lopressor. No chest pain this morning. Feels a bit tired. Review of systems: GEN.: Tired EYES: None HEENT: As above NECK: None RESPIRATORY: None CARDIOVASCULAR: As above GASTROINTESTINAL: None GENITOURINARY: None MUSCULOSKELETAL: None LYMPHATICS: None HEMATOLOGICAL: None PSYCHIATRY: None NEUROLOGICAL: As above. No change in speech or any focal weakness. Past medical history to include: GERD, hypertension, Social history: . Does not smoke or drink alcohol. Physical examination: VITAL SIGNS: 98.2, 87, 22, 229/119, 99% room air upon presentation GENERAL: BMI 33.8, declining but awake not in distress. EYES: Pupils equal. Conjunctiva normal. HEENT: External appearance of nose and ears normal, oral cavity grossly normal. NECK: JVD not raised; masses not palpable. HEART: First and second heart sounds are normal; no edema. LUNGS: Respiratory rate normal; clear to auscultation. ABDOMEN: Soft, nontender, liver spleen not palpable, no masses palpable. PSYCH: Alert and oriented x3; mood and affect normal. MUSCULOSKELETAL:No Clubbing/cyanosis;muscles-grossly intact, evidence of OA NEUROLOGICAL: Cranial nerves grossly intact; no facial asymmetry, power and sensation grossly intact. LYMPHATICS: No lymph nodes palpable in the axilla and neck INVESTIGATIONS, reviewed in the clinical context: White count 17.1 hemoglobin 15 platelets 22 sodium 139 potassium 4.4 creatinine 0.73 Troponin I less than 0.012, 0.054, 0.127, UA: Negative Urine drug screen: Not detected EKG tracing personally reviewed by me-normal sinus rhythm. Some ST segment depression. In inferolateral leads. Chest x-ray film personally reviewed by me-lungs clear. Elevated right diaphragm. Assessment and plan: -Accelerated hypertension. Patient with having foggy feeling last 2 months. Likely from the same. Lisinopril Lopressor added. -Positive troponin. Consider non-Q-wave [place]. Or troponin leak from uncontrolled blood pressure. Patient did have chest pain. Had some EKG changes. Aspirin. Beta isaiah. IV heparin. Cardiology consultation. -IV heparin monitoring Follow PTT 2-D echo. Aspirin. Lipitor. Prinivil. Lopressor. Telemetry. Cardiology consulted. Discussed with the patient. Past Medical History Past Medical History: GERD/Reflux, Hypertension Additional Past Medical History / Comment(s): POSITIVE HEMMOCULT, heart murmur. is not prescribed hypertension meds History of Any Multi-Drug Resistant Organisms: None Reported Past Surgical History: Back Surgery, Breast Surgery, Cholecystectomy, Hyst erectomy, Orthopedic Surgery Additional Past Surgical History / Comment(s): BREAST REDUCTION, LEFT ANKLE SX Past Anesthesia/Blood Transfusion Reactions: Postoperative Nausea & Vomiting (PONV) Past Psychological History: No Psychological Hx Reported Smoking Status: Never smoker Past Alcohol Use History: None Reported Past Drug Use History: None Reported - Past Family History Father Family Medical History: COPD, Diabetes Mellitus Additional Family Medical History / Comment(s): parkinsons Mother Additional Family Medical History / Comment(s): alzheimers Medications and Allergies Home Medications Medication Instructions Recorded Confirmed Type Acetaminophen Tab [Tylenol Tab] 500 mg PO Q6H PRN 02/03/22 02/03/22 History Calcium Carbonate [Calcium] 600 mg PO DAILY 02/03/22 02/03/22 History Cholecalciferol [Vitamin D3 (25 25 mcg PO DAILY 02/03/22 02/03/22 History Mcg = 1000 Iu)] L.acidoph,Paracasei, B.lactis 1 cap PO DAILY 02/03/22 02/03/22 History [Probiotic] Allergies Allergy/AdvReac Type Severity Reaction Status Date / Time Penicillins Allergy Unknown Verified 02/03/22 16:17 Childhood prochlorperazine edisylate Allergy "lock jaw" Verified 02/03/22 16:17 [From Compazine] prochlorperazine maleate Allergy "lock jaw" Verified 02/03/22 16:17 [From Compazine] Physical Exam Vitals: Vital Signs Temp Pulse Pulse Resp BP BP Pulse Ox 02/04/22 07:57 98.2 F 61 16 150/72 97 02/04/22 04:06 97.9 F 58 L 16 128/60 97 02/03/22 23:34 98.2 F 57 L 14 102/59 93 L 02/03/22 19:15 98.1 F 92 16 150/78 02/03/22 18:03 101 H 18 176/81 98 02/03/22 17:00 100 18 169/84 96 02/03/22 16:00 98 18 173/84 98 02/03/22 15:44 116 H 18 216/85 98 02/03/22 15:11 71 18 256/114 99 02/03/22 14:20 98.2 F 87 22 229/119 99 Intake and Output 02/03/22 02/04/22 02/04/22 22:59 06:59 14:59 Intake Total 70.154 Output Total 0 Balance 70.154 0 Intake: Intake, IV Titration 70.154 Amount Heparin Sod,Pork in 0.45% 70.154 NaCl 25,000 unit In 0.45 % NaCl 1 250ml.bag @ 12 UNITS/KG/HR 10.07 mls/hr IV .Q24H [facility] Rx#: [id number] Output: Stool 0 Other: Voiding Method Toilet # Voids 1 # Bowel Movements 0 Weight 83.915 kg Results CBC & Chem 7: 02/04/22 09:22 02/04/22 09:22 Labs: Abnormal Lab Results - Last 24 Hours (Table) 02/03/22 02/03/22 02/03/22 Range/Units 14:59 14:59 17:42 RBC 5.66 H (3.80-5.40) m/uL Hgb 16.3 H (11.4-16.0) gm/dL Hct 50.4 H (34.0-46.0) % Neutrophils # (1.3-7.7) k/uL APTT (22.0-30.0) sec Glucose 109 H (74-99) mg/dL AST 37 H (14-36) U/L Troponin I 0.054 H* (0.000-0.034) ng/mL 02/03/22 02/03/22 02/03/22 Range/Units 20:09 20:09 20:09 RBC (3.80-5.40) m/uL Hgb (11.4-16.0) gm/dL Hct 47.6 H (34.0-46.0) % Neutrophils # 8.6 H (1.3-7.7) k/uL APTT 33.6 H (22.0-30.0) sec Glucose (74-99) mg/dL AST (14-36) U/L Troponin I 0.127 H* (0.000-0.034) ng/mL 02/04/22 Range/Units 01:32 RBC (3.80-5.40) m/uL Hgb (11.4-16.0) gm/dL Hct (34.0-46.0) % Neutrophils # (1.3-7.7) k/uL APTT 121.2 H* (22.0-30.0) sec Glucose (74-99) mg/dL AST (14-36) U/L Troponin I (0.000-0.034) ng/mL Thrombosis Risk Factor Assmnt - Choose All That Apply Any of the Below Risk Factors Present?: Yes Each Factor Represents 1 point: Medical pt on bed rest, Obesity (BMI >25) Each Risk Factor Represents 3 Points: Age 75 years or older Thrombosis Risk Factor Assessment Total Risk Factor Score: 5 Thrombosis Risk Factor Assessment Level: High Risk
--- NOTE | 2022-02-04 16:19 | FL ---
Fluoroscopy for stress test INDICATION: Pain FINDINGS: Fluoroscopy time: 46 seconds. Images obtained: 0. There is elevation of the right diaphragm. With quiet breathing and no significant excursion of the r ight diaphragm is evident. With sniffing of the right diaphragm remained relatively stable. No parado xical motion could be elicited. No significant excursion with deep breathing evident. IMPRESSIONS: 1. Apparent fixation without paradoxical motion of the right diaphragm in relation to the left diaphr agm. 2. Normal left diaphragm motion.
[2022-02-04 16:20] LABS: Chol/HDL Ratio 3.15 Ratio; VLDL Calculation 17.46 mg/dL (5.00-40.00)
[2022-02-04] MEDS: HEPARIN SOD,PORK IN 0.45% NACL 25,000 UNIT in 0.45% NACL 1 250ML.BAG IV SCH (20:39)
[2022-02-04] MEDS: METOPROLOL TARTRATE 25 MG TAB PO SCH (20:40)
--- NOTE | 2022-02-05 05:55 | P.PN ---
Subjective Progress Note Date: 02/05/22 Principal diagnosis: Hypertension emergency The patient is a pleasant 76-year-old female patient who was admitted to the hospital was hypertension emergency. She was seen this morning. She is asymptomatic from a cardiovascular standpoint overview. She is hemodynamically stable. The pressure is under excellent control on the current medical regimen. She underwent an echocardiogram which revealed normal LV function was no evidence of wall motion abnormalities concerning for severe underlying coronary artery disease. From a cardiovascular standpoint of view, patient can be discharged home. She to be seen with the cardiology service as an outpatient. Objective - Vital Signs Vital signs: Vital Signs Temp 97.9 F 02/05/22 04:00 Pulse 53 L 02/05/22 04:00 Resp 18 02/05/22 04:00 BP 133/68 02/05/22 04:00 Pulse Ox 96 02/05/22 04:00 FiO2 Intake & Output 02/04/22 02/04/22 02/05/22 06:59 18:59 06:59 Intake Total 70.154 125.111 Output Total 0 0 Balance 70.154 0 125.111 Weight 83.915 kg Intake: Intake, IV Titration 70.154 125.111 Amount Heparin Sod,Pork in 0.45% 70.154 125.111 NaCl 25,000 unit In 0.45 % NaCl 1 250ml.bag @ 12 UNITS/KG/HR 10.07 mls/hr IV .Q24H [facility] Rx#: [id number] Output: Stool 0 0 Other: Voiding Method Toilet Toilet # Voids 1 1 # Bowel Movements 0 - Constitutional General appearance: Present: no acute distress - Respiratory Respiratory: bilateral: CTA - Cardiovascular Rhythm: regular Heart sounds: normal: S1, S2 - Labs CBC & Chem 7: 02/04/22 09:02/04/22 09:22 Labs: Abnormal Lab Results - Last 24 Hours (Table) 02/04/22 02/04/22 02/04/22 Range/Units 09: 09: 09: Hct 47.9 H (34.0-46.0) % APTT 49.4 H (22.0-30.0) sec Chloride 108 H (98-107) mmol/L Glucose 100 H (74-99) mg/dL Troponin I (0.000-0.034) ng/mL HDL Cholesterol 61.50 H (40.00-60.00) mg/dL 02/04/22 Range/Units 09:22 Hct (34.0-46.0) % APTT (22.0-30.0) sec Chloride (98-107) mmol/L Glucose (74-99) mg/dL Troponin I 0.052 H* (0.000-0.034) ng/mL HDL Cholesterol (40.00-60.00) mg/dL Assessment and Plan Assessment: Assessment Hypertension emergency Plan The pressure is under good control on the current medical regimen The patient can be discharged
[2022-02-05] MEDS: ACETAMINOPHEN TAB 500 MG TAB PO PRN (07:11)
[2022-02-05] MEDS: ATORVASTATIN 20 MG TAB PO SCH (09:06)
[2022-02-05] MEDS: METOPROLOL TARTRATE 25 MG TAB PO SCH (09:06)
[2022-02-05] MEDS: lisinopriL 5 MG TAB PO SCH (09:06)
[2022-02-05] MEDS: ASPIRIN 81 MG PO SCH (09:06)
[2022-02-05 09:12] VITALS: RESP 16
[2022-02-05 14:09] VITALS: BP 121/72; PULSE 54; TEMP 98.6
--- NOTE | 2022-02-05 19:37 | P.DS ---
Providers Date of admission: 02/03/22 17:06 Expected date of discharge: 02/05/22 Attending physician: Etienne Short Consults: 02/03/22 17:06 Consult Physician Urgent Consulting Provider: [facility] Consult Reason/Comments: Chest pain, hypertensive urgency Do you want consulting provider notified?: Yes Primary care physician: Isid[facility] Course: Chief Complaint: Dizzy This is a very pleasant 76-year-old patient follows with Dr. Dufyf. Patient presented with 2 months episodes of dizzy episodes. She feels her head is in a fall. If she does something quickly she gets dizzy. Yesterday she was told hairdressers the head was thrown back she became more dizzy. And was losing her balance while walking off that. No chest pain or shortness of breath. She went home. Took a blood pressure close to 220/85. Patient then came down to the ER. Initial blood pressure in the ER 229/119.. Patient had an episode of chest pa in lasting about 10 minutes. Differin as a pressure. Patient's troponin became positive. Was placed on IV heparin. Started on Zestril and Lopressor. No chest pain this morning. Feels a bit tired. February 05: Blood pressure controlled. Seen by cardiology. To be followed outpatient with them. Fluoroscopy showed apparent fixation without paradoxical motion of the right diaphragm relation to the left diaphragm. Discharge planning medication discussed with the patient. Discussion and discharge planning more than 35 minutes Past medical history to include: GERD, hypertension, Social history: . Does not smoke or drink alcohol. Physical examination: VITAL SIGNS: 98.6, 54, 16, 121 with 72, 94% room air GENERAL: Resting bed, comfortable EYES: Pupils equal. Conjunctiva normal. HEENT: External appearance of nose and ears normal, oral cavity grossly normal. NECK: JVD not raised; masses not palpable. HEART: First and second heart sounds are normal; no edema. LUNGS: Respiratory rate normal; clear to auscultation. ABDOMEN: Soft, nontender, liver spleen not palpable, no masses palpable. PSYCH: Alert and oriented x3; mood and affect normal. MUSCULOSKELETAL:No Clubbing/cyanosis;muscles-grossly intact, evidence of OA INVESTIGATIONS, reviewed in the clinical context: Echocardiogram: EF 55-60%. Fluoroscopy showed apparent fixation without paradoxical motion of the right diaphragm relation to the left diaphragm. White count 17.1 hemoglobin 15 platelets 22 sodium 139 potassium 4.4 creatinine 0.73 Troponin I less than 0.012, 0.054, 0.127, UA: Negative Urine drug screen: Not detected EKG tracing personally reviewed by me-normal sinus rhythm. Some ST segment depression. In inferolateral leads. Chest x-ray film personally reviewed by me-lungs clear. Elevated right diaphragm. Assessment and plan: -Accelerated hypertension. Patient with having foggy feeling last 2 months. Likely from the same. Lisinopril Lopressor added. -Positive troponin. Consider non-Q-wave [place]. Or troponin leak from uncontrolled blood pressure. Patient did have chest pain. Had some EKG changes. Aspirin. Beta isaiah. IV heparin. Seen by gynecology. Outpatient workup. -IV heparin monitoring Follow PTT Disposition: Home Plan - Discharge Summary Discharge Rx Participant: No New Discharge Prescriptions: New Aspirin 81 mg PO DAILY tab Metoprolol Tartrate [Lopressor] 25 mg PO BID #60 tab lisinopriL [Zestril] 5 mg PO DAILY #30 tab Atorvastatin [Lipitor] 20 mg PO DAILY #30 tab Continue Acetaminophen Tab [Tylenol] 500 mg PO Q6H PRN PRN Reason: Shortness Of Breath Cholecalciferol [Vitamin D3 (25 Mcg = 1000 Iu)] 25 mcg PO DAILY L.acidoph,Paracasei, B.lactis [Probiotic] 1 cap PO DAILY Calcium Carbonate [Calcium] 600 mg PO DAILY Discharge Medication List Acetaminophen Tab [Tylenol] 500 mg PO Q6H PRN 02/03/22 [History] Calcium Carbonate [Calcium] 600 mg PO DAILY 02/03/22 [History] Cholecalciferol [Vitamin D3 (25 Mcg = 1000 Iu)] 25 mcg PO DAILY 02/03/22 [History] L.acidoph,Paracasei, B.lactis [Probiotic] 1 cap PO DAILY 02/03/22 [History] Aspirin 81 mg PO DAILY tab 02/05/22 [Rx] Atorvastatin [Lipitor] 20 mg PO DAILY #30 tab 02/05/22 [Rx] Metoprolol Tartrate [Lopressor] 25 mg PO BID #60 tab 02/05/22 [Rx] lisinopriL [Zestril] 5 mg PO DAILY #30 tab 02/05/22 [Rx] Follow up Appointment(s)/Referral(s): Isidoro Duffy DO [Primary Care Provider] - 1-2 days (Call office Monday to set up appointment to see Dr. Prieto ) Nic Castillo MD [STAFF PHYSICIAN] - 1 Week (Please call office on Monday to set up a follow up appointment to be seen in [address] Castillo ) Activity/Diet/Wound Care/Special Instructions: [facility] - [phone] Discharge/Stand Alone Forms: Who Do I Call? Discharge Disposition: HOME SELF-CARE
--- NOTE | 2022-02-08 07:11 | CDI ---
Documentation Clarification Form Date: 02/08/22 From: Candy Davis Admit Date: 02/03/2022 05:06:00 PM Patient Name: Kinga Pfeiffer Visit Number: [id number] Discharge Date: 02/05/2022 01:59:00 PM ATTENTION: The Clinical Documentation Specialists (CDI) and [facility] Coding Staff appreciate your assistance in clarifying documentation. Please respond to the clarification below the line at the bottom and electronically sign. The CDI & [facility] Coding staff will review the response and follow-up if needed. Please note: Queries are made part of the Legal Health Record. If you have any questions, please contact the author of this message via ITS. Dr. Etienne Short, Positive troponin, consider non-Q-wave [place] or troponin leak from uncontrolled blood pressure is documented in the discharge summary. Additional clarification regarding the type of KS is requested. History/Risk Factors: Clinical Indicators: She was having some chest pain after she initially came so repeat EKG was done and showed sinus tachycardia 114 bpm NH interval 280 QRSs 89 QT interval 320 QTC is 386. Patient's EKG shows no ST segment elevation. Troponin: <0.012, 0.054, 0.127, 0.052 EKG Results: Sinus rhythm at 80 bpm NH interval 170 QRS 91 QT interval 374 QTC is 410 per patient's EKG shows no ST segment elevation or depression. Treatment: IV heparin, Obtain 2D echocardiogram and doppler study to assess cardiac structure and function. Lisinopril 5mg daily Aspirin, statin, beta isaiah. Please clarify the type of KS, if known: [ ] NSTEMI (type 1) [ ] Type II KS due to (please specify etiology) [ [ Non-ischemic myocardial injury [ ] KS ruled out [ ] Unable to determine [ ] Other Condition, please specify Troponin leak due to hypertensive emergency. No KS MTDD
== END 2022-02-05 13:59 | disposition home or self-care (01) | DRG 305 ==
LOC: EC 13:41 → 3SCARD 17:06
PROVIDERS: ADMIT Hospitalist; ATTEND Hospitalist
DX: I16.1 Hypertensive emergency (principal); I10 Essential (primary) hypertension; E66.9 Obesity, unspecified; K21.9 Gastro-esophageal reflux disease without esophagitis; Z68.34 Body mass index [BMI] 34.0-34.9, adult; R77.8 Other specified abnormalities of plasma proteins; Z79.899 Other long term (current) drug therapy; Z88.0 Allergy status to penicillin; Z88.8 Allergy status to other drugs, medicaments and biological substances; Z82.49 Family history of ischemic heart disease and other diseases of the circulatory system
CPT/HCPCS: 36415; 70450; 71046; 76000; 80048; 80053; 80061; 80306; 81003; 83735; 84443; 84484; 85025; 85610; 85730; 93005; 93306; 93880; 96374; 96375; 99291

== ENCOUNTER 2022-05-23 20:56 | Emergency (ER) | payer MEDICARE ==
[2022-05-23 21:24] VITALS: TEMP 97.5
--- NOTE | 2022-05-23 21:43 | ED ---
Chest Pain HPI - General Chief Complaint: Chest Pain Stated Complaint: High Blood Pressure Time Seen by Provider: 05/23/22 21:34 Source: patient, RN notes reviewed, old records reviewed Mode of arrival: ambulatory Limitations: no limitations - History of Present Illness Initial Comments: This is a 76-year-old female to the ER for evaluation tonight. Patient is her blood pressure always running significantly and severely high. Patient does have a history of high blood pressure. Patient does have issues with blood pressure control. Patient did take medications today. No other complaints of travel history no sick contacts. MD Complaint: chest pain, other (Severely elevated blood pressure) -: unknown Onset: during rest Pain Location: substernal Pain Radiation: none Severity: mild Severity scale (1-10): 0 Consistency: constant Improves With: nothing Worsens With: nothing Anginal Symptoms: sense of impending doom Other Symptoms: palpitations Treatments Prior to Arrival: none - Related Data Home Medications Medication Instructions Recorded Confirmed Acetaminophen Tab [Tylenol] 500 mg PO Q6H PRN 02/03/22 05/23/22 Calcium Carbonate [Calcium] 600 mg PO DAILY 02/03/22 05/23/22 Cholecalciferol [Vitamin D3 (25 25 mcg PO DAILY 02/03/22 05/23/22 Mcg = 1000 Iu)] L.acidoph,Paracasei, B.lactis 1 cap PO DAILY 02/03/22 05/23/22 [Probiotic] Atorvastatin [Lipitor] 20 mg PO HS 05/23/22 05/23/22 Meclizine [Antivert] 25 mg PO TID PRN 05/23/22 05/23/22 Previous Rx's Medication Instructions Recorded Metoprolol Tartrate [Lopressor] 25 mg PO BID #60 tab 02/05/22 Allergies Allergy/AdvReac Type Severity Reaction Status Date / Time Penicillins Allergy Unknown Verified 05/23/22 22:26 Childhood prochlorperazine edisylate Allergy "lock jaw" Verified 05/23/22 22:26 [From Compazine] prochlorperazine maleate Allergy "lock jaw" Verified 05/23/22 22:26 [From Compazine] Review of Systems ROS Statement: Those systems with pertinent positive or pertinent negative responses have been documented in the HPI. ROS Other: All systems not noted in ROS Statement are negative. EKG Findings - EKG Comments: EKG Findings:: EKG is sinus rhythm 67 AL 186 QRS 93 QTc 427 Past Medical History Past Medical History: GERD/Reflux, Hypertension Additional Past Medical History / Comment(s): POSITIVE HEMMOCULT, heart murmur. is not prescribed hypertension meds History of Any Multi-Drug Resistant Organisms: None Reported Past Surgical History: Back Surgery, Breast Surgery, Cholecystectomy, Hysterectomy, Orthopedic Surgery Additional Past Surgical History / Comment(s): BREAST REDUCTION, LEFT ANKLE SX Past Anesthesia/Blood Transfusion Reactions: Postoperative Nausea & Vomiting (PONV) Past Psychological History: No Psychological Hx Reported Smoking Status: Never smoker Past Alcohol Use History: None Reported Past Drug Use History: None Reported - Past Family History Father Family Medical History: COPD, Diabetes Mellitus Additional Family Medical History / Comment(s): parkinsons Mother Additional Family Medical History / Comment(s): alzheimers General Exam Limitations: no limitations General appearance: alert, in no apparent distress, anxious Head exam: Present: atraumatic, normocephalic, normal inspection Eye exam: Present: normal appearance, PERRL, EOMI. Absent: scleral icterus, conjunctival injection, periorbital swelling ENT exam: Present: normal exam, mucous membranes moist Neck exam: Present: normal inspection. Absent: tenderness, meningismus, lymphadenopathy Respiratory exam: Present: normal lung sounds bilaterally. Absent: respiratory distress, wheezes, rales, rhonchi, stridor Cardiovascular Exam: Present: regular rate, normal rhythm, normal heart sounds. Absent: systolic murmur, diastolic murmur, rubs, gallop, clicks GI/Abdominal exam: Present: soft, normal bowel sounds. Absent: distended, tenderness, guarding, rebound, rigid Extremities exam: Present: normal inspection, full ROM, normal capillary refill. Absent: tenderness, pedal edema, joint swelling, calf tenderness Back exam: Present: normal inspection Neurological exam: Present: alert, oriented X3, CN II-XII intact Psychiatric exam: Present: normal affect, normal mood Skin exam: Present: warm, dry, intact, normal color. Absent: rash Course Vital Signs 05/23/22 05/23/22 05/23/22 21:21 22:07 23:24 Temperature 97.5 F L Pulse Rate 63 83 87 Respiratory 18 16 14 Rate Blood Pressure 189/77 245/105 187/85 O2 Sat by Pulse 98 98 97 Oximetry - Reevaluation(s) Reevaluation #1: 05/23/22 Medical record is reviewed Reevaluation #2: 05/23/22 Patient has improvement in symptoms here in the ER Reevaluation #3: 05/23/22 Patient informed results and questions answered Reevaluation #4: 05/23/22 Differential Chest Pain: Stable Angina, Unstable Angina, STEMI, NSTEMI Aortic Dissection, Pneumothorax, Musculoskeletal, Esophageal Spasm GERD, Cholecystitis, Pancreatitis, Zoster, this is not meant to be an all-inclusive list. Reevaluation #5: 05/23/22 Was pt. sent in by a medical professional or institution? @ -no Did you speak to anyone other than the patient for history? @ -no Did you review nursing and triage notes? @ -agree Were old charts reviewed? @ -no Differential Diagnosis? @ -prior EKG interpreted by me (3pts min.)? @ -yes X-rays interpreted by me (1pt min.)? @ -yes CT interpreted by me (1pt min.)? @ -[none] U/S interpreted by me (1pt. min.)? @ -[none] What testing was considered but not performed? (CT, X-rays, U/S, labs)? Why? @ no What meds were considered but not given? Why? @ -[none] Did you discuss the management of the patient with other professionals? @ -no Did you reconcile home meds? @ -[none] Was smoking cessation discussed for >3mins.? @ -[none] Was critical care preformed (if so, how long)? @ -[none] Were there social determinants of health that impacted care today? How? (Homelessness, low income, unemployed, alcoholism, drug addiction, transportation, low edu. Level, literacy, decrease access to med. care, [facility], rehab)? @ -no Was there de-escalation of care discussed even if they declined? (Discuss DNR or withdrawal of care, Hospice)? @ -no What co-morbidities impacted this encounter? (DM, HTN, Smoking, COPD, CAD, Cancer, CVA, Hep., AIDS, mental health diagnosis, sleep apnea, morbid obesity)? @ -no Was patient admitted / discharged? @ -dc Undiagnosed new problem with uncertain prognosis? @ -[none] Drug Therapy requiring intensive monitoring for toxicity (Heparin, Nitro, Insulin, Cardizem)? @ -[none] Were any procedures done? @ -[none] Diagnosis/symptom? @ -[default] Acute, or Chronic, or Acute on Chronic? @ -Acute on chronic Uncomplicated (without systemic symptoms) or Complicated (systemic symptoms)? @ -[default] Side effects of treatment? @ -[none] Exacerbation, Progression, or Severe Exacerbation] @ -[no] Poses a threat to life or bodily function? @ -[no] Chest Pain MDM - MDM 76 female to the emergency department for evaluation patient coming in for chest pain but mainly high blood pressure severely elevated lipids. Patient's blood pressure has normalized here in the emergency department is no acute distress and can be discharged home Disposition Clinical Impression: Chest pain, Hypertensive urgency Disposition: HOME SELF-CARE Condition: Good Instructions (If sedation given, give patient instructions): Chest Pain (ED) Is patient prescribed a controlled substance at d/c from ED?: No Referrals: Isidoro Duffy DO [Primary Care Provider] - 1-2 days Time of Disposition: 23:35
--- NOTE | 2022-05-23 21:50 | XR ---
EXAMINATION TYPE: XR chest 1V portable DATE OF EXAM: 05/23/2022 COMPARISON: 02/03/2022 HISTORY: Hypertension. Chest pain TECHNIQUE: FINDINGS: Heart is normal. Lungs are clear. Diaphragm is normal. Bony thorax is intact. There are zana st leads. IMPRESSION: No active cardiopulmonary disease. Normal heart. No change.
[2022-05-23 22:03] LABS: Basophils # (A) 0.1 k/uL (0-0.2); Basophils % (A) 1 %; Eosinophils # (A) 0.2 k/uL (0-0.7); Eosinophils % (A) 2 %; HGB 15.9 gm/dL (11.4-16.0); Lymphocytes # (A) 1.8 k/uL (1.0-4.8); Lymphocytes % (A) 16 %; MCH 29.5 pg (25.0-35.0); MCHC 33.2 g/dL (31.0-37.0); MCV 88.7 fL (80.0-100.0); Mean Platelet Volume 7.5; Monocytes # (A) 0.4 k/uL (0-1.0); Monocytes % (A) 4 %; Neutrophils # (A) 8.6 k/uL (1.3-7.7); Neutrophils % (A) 76 %; Platelet Count 292 k/uL (150-450); RBC 5.41 m/uL (3.80-5.40); RDW 12.9 % (11.5-15.5); WBC 11.3 k/uL (3.8-10.6)
[2022-05-23 22:13] LABS: ALT 23 U/L (4-34); AST 27 U/L (14-36); African American GFR (CKD) >90 (>60 ml/min/1.73 sqM); Albumin 4.2 g/dL (3.5-5.0); Alkaline Phosphatase 132 U/L (38-126); Blood Urea Nitrogen 18 mg/dL (7-17); Calcium 9.7 mg/dL (8.4-10.2); Carbon Dioxide 23 mmol/L (22-30); Glucose 116 mg/dL (74-99); Lipase 60 U/L (23-300); Non-African American GFR(CKD) 81 (>60 ml/min/1.73 sqM); Potassium 4.3 mmol/L (3.5-5.1); Sodium 140 mmol/L (137-145); Total Bilirubin 0.4 mg/dL (0.2-1.3); Total Protein 7.3 g/dL (6.3-8.2)
[2022-05-23 22:16] LABS: INR 0.9 (<1.2); Partial Thromboplastin Time 26.6 sec (22.0-30.0); Prothrombin Time 9.9 sec (9.0-12.0)
[2022-05-23 22:27] LABS: Anion Gap 8 mmol/L; Chloride 109 mmol/L (98-107)
[2022-05-23] MEDS: LABETALOL 5 MG/ML VIAL MDV IVP STA ×2 (22:32→22:37)
[2022-05-23] MEDS ORDERED: hydrALAZINE HCL 20 MG/ML 1 ML VIAL IVP STA (22:38)
[2022-05-23] MEDS ORDERED: ACETAMINOPHEN TAB 325 MG TAB PO STA (22:48)
[2022-05-23 23:25] VITALS: BP 187/85; PULSE 87; RESP 14
== END 2022-05-23 23:52 | disposition home or self-care (01) ==
LOC: EC 20:56
DX: R07.89 Other chest pain (principal); I16.0 Hypertensive urgency; I10 Essential (primary) hypertension; Z88.0 Allergy status to penicillin; Z88.8 Allergy status to other drugs, medicaments and biological substances
CPT/HCPCS: 36415; 93005; 85379; 83880; 80053; 83690; 83735; 84484; 85025; 85610; 85730; 71045; 99285; 96374; J0360